=== PATIENT | male | born 2000 | race Caucasian/White ===

== ENCOUNTER 2022-04-25 13:40 | Emergency (ER) | payer MEDICAID ==
[~2022-04-25] VITALS: Ht 167.6 cm; Wt 65.0 kg
[2022-04-25 14:04] VITALS: BP 123/72
[2022-04-25] MEDS ORDERED: ondansetron 4mg rapidly disintigrating tab PO ONE (14:45)
--- NOTE | 2022-04-25 15:02 | NUR ---
XRAY AT BS
[2022-04-25] MEDS ORDERED: GUAI400T92 PO (15:54)
[2022-04-25] MEDS ORDERED: AZIT-31 PO (15:54)
[2022-04-25] MEDS ORDERED: ONDA4TAB12 PO (15:54)
== END 2022-04-25 16:34 | disposition home or self-care (01) ==
LOC: ER 13:42
DX: J06.9 Acute upper respiratory infection, unspecified (principal); R50.9 Fever, unspecified; R07.89 Other chest pain; R11.2 Nausea with vomiting, unspecified
CPT/HCPCS: 71045; 87502; 87503; 99284